=== PATIENT | female | born 1970 | race Caucasian/White ===

== ENCOUNTER 2018-03-05 17:10 | Emergency (ER) | payer OTHER ==
[~2018-03-05] VITALS: Ht 170.2 cm; Wt 83.9 kg
[~2018-03-05 17:10] MED LIST: ALBU90OI6 INH; BUSP15 PO; CARI350; CARI350 PO; CIPR500 PO; CYCL10 PO; DICL75ER PO; DOCU100; FERROUS SULFATE; FLUO10 PO; FLUO20; GABA300; HYDACE5325 PO; HYDR1TAB94 PO; HYDROCODONE AP PO; Hydrocodone-Ap1 EA20 PO; LEVFLO500 PO; LMX 515 GM TP; LORA2 PO; METH10 PO; METH40 PO; NAPR500 PO; OMEP20ER PO; OMEPRAZOLE MAGN20 MG PO; OXYACE10 PO; OXYC20ER PO; OXYC80ER PO; PROM25 PO; PROM6.25SY PO; Prozac20 MG; RXPROMSY PO; TRAZ100; TRAZ100 PO; TRAZ50; TRAZ50 PO
[2018-03-05] MEDS ORDERED: OXYC10TA19 (19:48)
[2018-03-05] MEDS ORDERED: LOPE2C PO (19:53)
[2018-03-05] MEDS ORDERED: Catapres0.1 MG PO (19:53)
[2018-03-05] MEDS ORDERED: PROM25 PO (19:53)
== END 2018-03-05 20:10 | disposition home or self-care (01) ==
LOC: ER 17:10
DX: F11.23 Opioid dependence with withdrawal (principal); F17.200 Nicotine dependence, unspecified, uncomplicated; Z79.899 Other long term (current) drug therapy
CPT/HCPCS: 99283

== ENCOUNTER 2018-03-08 18:27 | Emergency (ER) | payer OTHER ==
[~2018-03-08] VITALS: Ht 170.2 cm; Wt 84.8 kg
[~2018-03-08 18:27] MED LIST changes: +Catapres0.1 MG PO; +LOPE2C PO; +OXYC10TA19
[2018-03-08] MEDS ORDERED: KETO10 PO (19:28)
[2018-03-08] MEDS ORDERED: HYDHCL25 PO (19:28)
[2018-03-08] MEDS ORDERED: Cyclobenzaprine5 MG PO (19:28)
== END 2018-03-08 19:35 | disposition home or self-care (01) ==
LOC: ER 18:27
DX: G89.29 Other chronic pain (principal); M54.5 Low back pain; Z76.0 Encounter for issue of repeat prescription; Z79.891 Long term (current) use of opiate analgesic; Z79.899 Other long term (current) drug therapy; F17.200 Nicotine dependence, unspecified, uncomplicated
CPT/HCPCS: 99281

== ENCOUNTER 2018-03-12 15:31 | Emergency (ER) | payer OTHER ==
[~2018-03-12] VITALS: Ht 170.2 cm; Wt 85.3 kg
[~2018-03-12 15:31] MED LIST changes: +Cyclobenzaprine5 MG PO; +HYDHCL25 PO; +KETO10 PO
[2018-03-12 15:56] LABS: BASOPHILS ABSOLUTE AUTO 0.05 K/mm3 (0.00-0.23); BASOPHILS PERCENT AUTO 0 % (0-2); EOSINOPHILS ABSOLUTE AUTO 0.15 K/mm3 (0.00-0.68); EOSINOPHILS PERCENT AUTO 1 % (0-6); Hemoglobin 13.4 g/dL (11.5-16.0); IMMATURE GRAN ABSOLUTE AUTO 0.05 K/mm3 (0.00-0.10); IMMATURE GRAN PERCENT AUTO 0 % (0-1); LYMPHOCYTES ABSOLUTE AUTO 3.72 K/mm3 (0.84-5.20); LYMPHOCYTES PERCENT AUTO 29 % (21-46); MONOCYTES ABSOLUTE AUTO 0.44 K/mm3 (0.16-1.47); MONOCYTES PERCENT AUTO 3 % (4-13); Mean Corpuscular HGB 30.7 pg (26.0-34.0); Mean Corpuscular HGB Conc 33.5 g/dL (31.5-36.5); Mean Corpuscular Volume 92 fL (80-100); Mean Platelet Volume 8.6 fL (9.1-12.4); NEUTROPHILS ABSOLUTE AUTO 8.54 K/mm3 (1.96-9.15); NEUTROPHILS PERCENT AUTO 66 % (41-73); Platelet Count 212 K/mm3 (150-400); RDW Coefficient Variation 12.5 % (11.7-14.2); RDW Standard Deviation 42.5 fL (35.1-46.3); Red Blood Cell Count 4.36 M/mm3 (3.80-5.20); White Blood Cell Count 12.95 K/mm3 (4.00-11.30)
[2018-03-12 16:27] LABS: Alanine Aminotransfer (ALT/SGP 24 U/L (12-78); Albumin, Blood 3.5 g/dL (3.4-5.0); Albumin/Globulin Ratio 0.9 (0.8-1.8); Alk Phos 99 U/L (50-136); Anion Gap 8 mmol/L (6-16); Aspartate Aminotrans (AST/SGOT 11 U/L (12-37); Bilirubin, Total 0.2 mg/dL (0.1-1.0); Blood Urea Nitrogen 19 mg/dL (8-24); CO2, Blood 28 mmol/L (21-32); Calcium, Blood 8.5 mg/dL (8.5-10.1); Chloride, Blood 103 mmol/L (98-108); Creatinine, Blood 0.95 mg/dL (0.40-1.00); Globulin, Blood 3.8 g/dL (2.2-4.0); Glomerular Filtration Rate >60 (60-); Glucose, Blood 106 mg/dL (70-99); Sodium, Blood 139 mmol/L (136-145); Total Protein, Blood 7.3 g/dL (6.4-8.2)
[2018-03-12] MEDS ORDERED: Ativan1 MG PO (19:01)
[2018-03-12] MEDS ORDERED: Catapres0.1 MG PO (19:01)
== END 2018-03-12 19:38 | disposition home or self-care (01) ==
LOC: ER 15:31
PROVIDERS: Physician Assistant
DX: F11.23 Opioid dependence with withdrawal (principal); Z79.891 Long term (current) use of opiate analgesic; Z79.899 Other long term (current) drug therapy; F17.200 Nicotine dependence, unspecified, uncomplicated
CPT/HCPCS: 36415; 80053; 85025; 96374; 99283-25; J2060

== ENCOUNTER 2018-03-16 14:37 | Emergency (ER) | payer OTHER ==
[~2018-03-16] VITALS: Ht 170.2 cm; Wt 85.3 kg
[~2018-03-16 14:37] MED LIST changes: +Ativan1 MG PO
[2018-03-16 15:20] LABS: Calcium, Ionized (POC) 1.07 mmol/L (1.10-1.46); Chloride (POC) 101 mmol/L (98-108); Glucose (ISTAT POC) 158 mg/dL (70-99); Hemoglobin (POC) 14.6 g/dL (12.0-16.0); Sodium (POC) 138 mmol/L (135-148); Total CO2 (POC) 24 mmol/L (21-32)
== END 2018-03-16 18:40 | disposition home or self-care (01) ==
LOC: ER 14:37
PROVIDERS: Physician Assistant
DX: F11.90 Opioid use, unspecified, uncomplicated (principal); R53.1 Weakness; Z79.891 Long term (current) use of opiate analgesic; Z79.899 Other long term (current) drug therapy; F17.200 Nicotine dependence, unspecified, uncomplicated
CPT/HCPCS: 36415; 80047; 85014; 99284

== ENCOUNTER 2018-05-24 17:10 | Emergency (ER) | payer OTHER ==
[~2018-05-24] VITALS: Ht 170.2 cm; Wt 82.1 kg
[2018-05-24] MEDS ORDERED: Percocet 10-321 EACH PO (18:58)
[2018-05-24] MEDS ORDERED: Catapres0.1 MG PO (18:58)
== END 2018-05-24 19:07 | disposition home or self-care (01) ==
LOC: ER 17:10
DX: F41.9 Anxiety disorder, unspecified (principal); Z76.0 Encounter for issue of repeat prescription; Z87.891 Personal history of nicotine dependence
CPT/HCPCS: 99283

== ENCOUNTER → 2018-11-23 | Outpatient (CLI) | payer OTHER ==
[~2018-11-23] MED LIST changes: +Percocet 10-321 EACH PO
== END | disposition home or self-care (01) ==
LOC: LAB SHORT 16:15 → LAB EV 16:15
PROVIDERS: Nurse Practitioner
DX: Z01.419 Encounter for gynecological examination (general) (routine) without abnormal findings (principal)
CPT/HCPCS: G0145